=== PATIENT | male | born 1980 | race Two or more races ===

== ENCOUNTER 2016-11-14 14:39 | Emergency (ER) | payer OTHER ==
[2016-11-14 16:20] LABS: ABSOLUTE NEUTROPHIL COUNT 3.8 K/mm3 (1.8-7.7); BASO # 0.1 K/mm3 (0.0-0.2); BASO % 0.9 % (0.2-1.0); EOS # 0.2 (0.0-0.5); EOS % 2.1 % (0.9-2.9); HEMATOCRIT 45.8 % (32.0-52.0); HEMOGLOBIN 15.3 gm/l (14.0-18.0); IMM NEUT% 0.4 % (0-1); LYMPH # 2.9 (1.0-4.8); LYMPH % 38.1 % (15-45); MEAN CELL VOLUME 83.9 fl (80.0-94.0); MEAN CORPUSCULAR HGB CONC 33.4 g/dl (33.0-37.0); MEAN PLATELET VOLUME 11.1 fl (7.4-10.4); MONO # 0.7 (0.0-0.8); MONO % 9.5 % (4-12); PLATELET COUNT 234 K/mm3 (130-400); RED CELL DISTRIBUTION WIDTH 12.7 % (11.5-14.5)
[2016-11-14 16:35] LABS: ALB/GLOB RATIO 1.3 (>1.0); ALBUMIN 4.5 gm/dL (3.5-5.7); CALCIUM 9.5 mg/dL (8.6-10.3)
[2016-11-14] MEDS ORDERED: MAALOX/LIDO2%VISC/SIMETHICONE 40 ML BOT ONE (17:02)
[2016-11-14] MEDS ORDERED: FAMOTIDINE 10 MG/ML 2ML VIAL ONE (17:02)
== END 2016-11-14 17:22 | disposition home or self-care (01) ==
LOC: ED 14:39
DX: K29.70 Gastritis, unspecified, without bleeding (principal)
CPT/HCPCS: 83690; 85025; 80053; 99283 ×2; 96374; A9270